=== PATIENT | female | born 1960 | race Caucasian/White ===

== ENCOUNTER 2016-04-21 08:26 | Emergency (ER) | payer BC ==
[2016-04-21 09:06] VITALS: BP 121/76
--- NOTE | 2016-04-21 09:28 | UC ---
Throat Pain/Nasal Tae HPI - HPI Summary HPI Summary: worsening sinus pain and congestion, chills, unsure about fever - History of Current Complaint Chief Complaint: UC Stated Complaint: SINUS COMPLAINT Time Seen by Provider: 04/21/16 09:03 Hx Obtained From: Patient Hx Last Menstrual Period: n/a ?: No Onset/Duration: Gradual Onset, Lasting Weeks - 7, Still Present Severity: Moderate Pain Intensity: 6 Pain Scale Used: 0-10 Numeric Cough: None Associated Signs & Symptoms: Positive: Sinus Discomfort, Nasal Discharge, Fever - subjective - Allergies/Home Medications Allergies/Adverse Reactions: Allergies Allergy/AdvReac Type Severity Reaction Status Date / Time Penicillin G Allergy Swelling Verified 04/21/16 08:55 Of Face,Lips,& Throat Home Medications: Home Medications Cholecalciferol [D 1000] 04/21/16 [History] Ibuprofen TAB* [Advil TAB*] 800 mg PO Q6H PRN 04/21/16 [History Confirmed ] Multiple Vitamins W/ Minerals [Multivitamin Adults] 1 tab PO DAILY 04/21/16 [ History Confirmed 04/21/16] PMH/Surg Hx/FS Hx/Imm Hx Previously Healthy: No Endocrine History Of: Denies: Diabetes, Thyroid Disease, Hyperthyroidism, Hypothyroidism Cardiovascular History Of: Reports: Cardiac Disorders - DIASTOLIC DYSFUCTION Denies: Hypertension Neurological History Of: Denies: TIA, Seizures Psychological History Of: Denies: Anxiety, Depression Cancer History Of: Denies: Breast Cancer - Surgical History Surgical History: None - Family History Known Family History: Positive: Other - SON MAY HAVE GOUT - Social History Occupation: Employed Full-time - teacher Lives: With Family Alcohol Use: Rare Substance Use Type: None Smoking Status (MU): Never Smoked Tobacco - Immunization History Most Recent Influenza Vaccination: FEB 2016 Review of Systems Constitutional: Chills, Fatigue Skin: Negative Eyes: Negative ENT: Nasal Discharge Respiratory: Cough Cardiovascular: Negative Gastrointestinal: Negative Genitourinary: Negative Motor: Negative Neurovascular: Negative Musculoskeletal: Myalgia Neurological: Headache Psychological: Negative All Other Systems Reviewed And Are Negative: Yes Physical Exam Triage Information Reviewed: Yes Appearance: Well-Nourished, Ill-Appearing - mild, Pain Distress - mild Vital Signs: Initial Vital Signs Temp 97.7 F 04/21/16 08:58 Pulse 74 04/21/16 08:58 Resp 16 04/21/16 08:58 BP 121/76 04/21/16 08:58 Pulse Ox 99 04/21/16 08:58 Vital Signs Reviewed: Yes Eye Exam: Normal Eyes: Positive: Conjunctiva Clear ENT Exam: Normal ENT: Positive: Normal ENT inspection, Hearing grossly normal, Pharynx normal, Nasal congestion, Nasal drainage. Negative: TMs normal, Tonsillar swelling, Tonsillar exudate, Trismus, Muffled/hoarse voice Dental Exam: Normal Neck exam: Normal Neck: Positive: Supple, Nontender, No Lymphadenopathy Respiratory Exam: Normal Respiratory: Positive: Chest non-tender, Lungs clear, Normal breath sounds, No respiratory distress, No accessory muscle use Cardiovascular Exam: Normal Cardiovascular: Positive: RRR, No Murmur, Pulses Normal, Brisk Capillary Refill Musculoskeletal Exam: Normal Musculoskeletal: Positive: Strength Intact, ROM Intact, No Edema Neurological Exam: Normal Neurological: Positive: Alert, Muscle Tone Normal Psychological Exam: Normal Skin Exam: Normal Throat Pain/Nasal Course/Dx - Course Course Of Treatment: flonase, zithromax, increase fluids, follow with pcp re- check prn - Differential Dx/Diagnosis Differential Diagnosis/HQI/PQRI: Otitis Media, Pharyngitis, Sinusitis, URI Provider Diagnoses: Acute sinusitis Discharge - Discharge Plan Condition: Stable Disposition: HOME Prescriptions: Azithromycin TAB* [Zithromax TAB (Z-LISA) 250 mg #6 tabs] 2 tab PO .TODAY, THEN 1 DAILY #1 lisa Fluticasone NASAL SPRAY 50MCG* [Flonase NASAL SPRAY 50MCG*] 2 spray BOTH NARES DAILY #1 btl Patient Education Materials: Sinusitis (ED), How to Use Nasal [place] (ED) Referrals: Alejandra Thacker MD [Primary Care Provider] - If Needed
== END 2016-04-21 09:36 | disposition home or self-care (01) ==
LOC: UCCORT 08:26
DX: J01.90 Acute sinusitis, unspecified (principal); Z88.0 Allergy status to penicillin
CPT/HCPCS: 99212; G0463

== ENCOUNTER 2016-07-01 16:09 | Emergency (ER) | payer BC ==
[2016-07-01 16:35] VITALS: BP 118/79
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
== END 2016-07-01 16:54 | disposition home or self-care (01) ==
LOC: UCCORT 16:09
DX: T22.011A Burn of unspecified degree of right forearm, initial encounter (principal); X10.0XXA Contact with hot drinks, initial encounter; Y93.9 Activity, unspecified; Y99.9 Unspecified external cause status; Z88.0 Allergy status to penicillin
CPT/HCPCS: 99212; G0463

== ENCOUNTER 2017-11-30 14:36 | Emergency (ER) | payer BC ==
[2017-11-30 15:01] VITALS: BP 136/96
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
== END 2017-11-30 15:43 | disposition home or self-care (01) ==
LOC: UCEAST 14:36
DX: M62.830 Muscle spasm of back (principal); Z88.0 Allergy status to penicillin
CPT/HCPCS: 99212; G0463